=== PATIENT | female | born 1985 | race African-American/Black ===

== ENCOUNTER → 2017-01-21 | Emergency (ER) | payer MEDICAID | END | disposition home or self-care (01) | LOC: ER 04:07 | DX: Z53.21 Procedure and treatment not carried out due to patient leaving prior to being seen by health care provider (principal) ==

== ENCOUNTER 2021-12-29 20:58 | Emergency (ER) | payer SELFPAY ==
[~2021-12-29] VITALS: Ht 175.3 cm; Wt 102.4 kg
[2021-12-29 21:59] VITALS: BP 131/100
== END 2021-12-30 04:02 | disposition left against medical advice (07) ==
LOC: ER 20:58
DX: Z53.21 Procedure and treatment not carried out due to patient leaving prior to being seen by health care provider (principal)